=== PATIENT | male | born 1940 | race Caucasian/White ===

== ENCOUNTER 2021-02-18 09:43 | Outpatient (REF) | payer MEDICARE, SELFPAY ==
--- NOTE | ~2021-02-18 | XR_ITS ---
EXAMINATION: XR CHEST CLINICAL INFORMATION: Cough COMPARISON: Previous chest x-ray May 2020 TECHNIQUE: 2 views of the chest were obtained. FINDINGS: The cardiac and mediastinal contours are stable. There is superior retraction of the left pulmonary hilum. There may be a focal left upper lobe bronchiectasis and bronchial wall thickening. There is asymmetric left apical pleural thickening. These findings are unchanged. The right lung is clear. There is no pleural effusion or pneumothorax. There are degenerative changes of the spine. XR/XR chest 2V IMPRESSION: Volume loss to the left upper lobe. Left apical pleural thickening and central left upper lobe bronchiectasis and possible bronchial wall thickening. These changes appear similar to May 2020 exam.
== END 2021-02-18 09:44 | disposition home or self-care (01) ==
LOC: HO.XRAY 09:43
PROVIDERS: PCP Internal Medicine; Visit Provider Internal Medicine
DX: R05 Cough (principal)
CPT/HCPCS: 71046

== ENCOUNTER 2021-03-13 15:01 | Outpatient (RCR) | payer MEDICARE, SELFPAY | END 2021-08-03 09:35 | disposition home or self-care (01) | LOC: HO.PT 15:01 | PROVIDERS: PCP Internal Medicine; Visit Provider Internal Medicine | DX: M75.42 Impingement syndrome of left shoulder (principal) | CPT/HCPCS: 97110; 97161 ==

== ENCOUNTER 2023-11-17 11:43 | Outpatient (REF) | payer MEDICARE, SELFPAY ==
[2023-11-17 15:44] LABS: Influenza A PCR NEGATIVE (Negative); Influenza B PCR NEGATIVE (Negative); Resp Syncy Virus RNA Qual PCR NEGATIVE (Negative); SARS COV2 PCR INHOUSE NEGATIVE (Negative)
== END 2023-11-17 11:44 | disposition home or self-care (01) ==
LOC: HO.CHCLDS 11:43
PROVIDERS: Visit Provider Family Medicine
DX: J06.9 Acute upper respiratory infection, unspecified (principal)
CPT/HCPCS: 0241U

== ENCOUNTER 2024-01-16 14:32 | Outpatient (REF) | payer MEDICARE, SELFPAY ==
[2024-01-16 17:28] LABS: MANUAL DIFF FLAG NO
[2024-01-16 17:38] LABS: Basophils Percent Auto 0.3 % (0-2); Eosinophils Absolute Auto 0.3 X10*3/uL (0.0-0.4); Eosinophils Percent Auto 4.3 % (0-4); Imm Gran Abs Auto 0.02 X10*3/uL (0.00-0.03); Imm Gran Pct Auto 0.3 % (0.0-0.4); Lymphocytes Absolute Auto 2.1 X10*3/uL (1.2-4.9); Lymphocytes Percent Auto 33.1 % (20-40); Mean Corpuscular HGB Conc 31.6 g/dl (31.0-36.0); Mean Corpuscular Hemoglobin 31.6 pg (27.0-33.0); Mean Platelet Volume 11.5 fL (9.4-12.4); Monocytes Absolute Auto 0.6 X10*3/uL (0.1-1.2); Neutrophils Absolute Auto 3.3 x10*3/uL (2.0-8.3); Platelet Count 145 X10*3/uL (160-400); Red Blood Count 2.09 X10*6/uL (4.60-5.80); Red Cell Distribution Width 13.1 % (11.0-16.0); White Blood Count 6.3 X10*3/uL (4.8-10.8)
[2024-01-16 17:53] LABS: Hematocrit 20.9 % (42.0-52.0); Hemoglobin 6.6 g/dl (14.0-18.0)
[2024-01-16 18:09] LABS: TSH reflex Free T4 1.41 uIU/mL (0.32-4.0); Vitamin D 25-OH Total 14.3 ng/mL (>30)
[2024-01-16 18:18] LABS: Folate 6.1 ng/mL (> or = 4.0); Vitamin B12 445 pg/mL (200-900)
[2024-01-16 19:48] LABS: Alanine Aminotransferase 10 U/L (0-40); Albumin Level 2.5 g/dL (3.5-5.0); Alkaline Phosphatase 110 U/L (39-117); Anion Gap 11 (12-20); Aspartate Amino Transferase 16 U/L (5-37); Bilirubin Total 0.2 mg/dL (0.0-1.0); Blood Urea Nitrogen 57 mg/dL (9-16); Calcium 7.6 mg/dL (8.4-10.2); Carbon Dioxide 18 mmol/L (22-29); Chloride 115 mmol/L (96-108); Estimated Glomerular Filt Rate 10; Glucose Random 209 mg/dL (60-115); Potassium 4.4 mmol/L (3.3-5.1); Sodium 140 mmol/L (135-145); Total Protein 5.4 g/dL (6.5-8.0)
== END 2024-01-16 14:33 | disposition home or self-care (01) ==
LOC: HO.CHCLDS 14:32
PROVIDERS: Visit Provider Internal Medicine
DX: I13.0 Hypertensive heart and chronic kidney disease with heart failure and stage 1 through stage 4 chronic kidney disease, or unspecified chronic kidney disease (principal); E11.22 Type 2 diabetes mellitus with diabetic chronic kidney disease; N18.9 Chronic kidney disease, unspecified; R53.83 Other fatigue; E11.65 Type 2 diabetes mellitus with hyperglycemia; Z79.4 Long term (current) use of insulin
CPT/HCPCS: 36415; 80053; 82306; 82607; 82746; 84443; 85025

== ENCOUNTER → 2024-02-22 14:33 | Outpatient (REF) | payer MEDICARE, SELFPAY ==
--- NOTE | 2024-02-22 14:38 | CA_ITS ---
Transthoracic Echocardiogram Patient (Last, First, Middle): Eliza Correia, Gender: Male Date of : 1940 Age: 83 Procedure Date: 02/22/2024 Procedure Type: Transthoracic Echocardiogram Location: OP Height: 160.02 cm Weight: 64.41 kg BSA: 1.67 m2 Heart Rate: 81 bpm BP: 100 / 62 mmHg Information Systems Director: SB Referring MD: Venessa Hines MD Symptoms: R53.83 FATIGUE HYPERTENIVE HEART/RENAL DIS WW/ CHF I13.0 Study Quality: Adequate ECG Rhythm: Sinus Conclusions: - The left ventricular systolic function is normal. The calculated ejection fraction is 59% by biplane method. - There is moderate septal asymmetric hypertrophy. - No obvious valvular pathology seen on this study. Findings Left Ventricle Normal left ventricular cavity size. The left ventricular systolic function is normal. The calculated ejection fraction is 59% by biplane method. There is no evidence of regional wall motion abnormalities. Evidence suggests grade I (mild) diastolic dysfunction. There is moderate septal asymmetric hypertrophy. Right Ventricle Normal right ventricular cavity size. There is mildly decreased right ventricular systolic function. Atria Both atria are normal in size. Aortic Valve There is a normal trileaflet aortic valve. There is no aortic valve stenosis. There is trace (trivial) aortic valve regurgitation. Mitral Valve There is mild mitral annular calcification. There is trace mitral valve regurgitation. There is no mitral valve stenosis. Pulmonic Valve The pulmonic valve is likely normal. Tricuspid Valve There is trace tricuspid valve regurgitation. There is no evidence of pulmonary hypertension. Great Vessels The asc aorta is normal in size. Small plaque is seen in the sino tubular ridge. Venous The inferior vena cava was not well visualized. Pericardium/Pleural There is no evidence of pericardial effusion. Prior Study Comparison No prior study available for comparison. Recommendations, Care & Conclusions No obvious valvular pathology seen on this study. Measurements 2D Linear Measurements IVSd: 1.39 0.6-0.9/0.6-1.0 cm LVIDd: 3.97 3.9-5.3/4.2-5.9 cm LVIDd Index: 2.38 2.4-3.2/2.2-3.1 cm/m2 LVIDs: 2.82 2.0-3.6 cm LVPWd: 0.92 0.7-1.1 cm LA Diam: 3.80 2.7-3.8/3.0-4.0 cm LAIDs Index: 2.28 1.5-2.3 cm/m2 LV Mass: 192.88 67-162/88-224 g LV Mass Index: 115.49 43-95/49-115 g/m2 LVOT Diam: 1.90 3.0+(-)1.3 cm 2D Systolic Function EF 4C: 68.40 >55% EF 2C: 47.60 >55% EF BiP: 59.00 >55% Mitral Valve MV Pk E: 0.62 MV PK A: 1.27 MV Decel Time: 270.00 E/A: 0.50 E'Lateral: 5.87 E'Medial: 3.26 E/E' Med: 19.00 E/E' Lat: 10.50 PHT: 79.00 MVA PHT: 2.78 Decel Graves: 2.29 Aortic Valve AoV Pk Loc: 1.07 AoV Pk Grad: 5.00 GEORGE: 2.66 AI Pk Loc: 3.86 AI Graves: 2.17 LVOT LVOT Pk Loc: 1.01 LVOT Mn Loc: 0.76 LVOT VTI: 0.24 LVOT Pk Grad: 4.00 LVOT Mn Grad: 3.00 LVOT Diam: 1.90 LVOT Area: 2.84 Diastolic Function MV Pk E: 0.62 MV Pk A: 1.27 E/A: 0.50 E'Medial: 3.26 E/E' Med: 19.00 E' Laterial: 5.87 E/E' Lat: 10.50 Right Ventricle TAPSE (mm): 14.30 TVS' Loc: 9.46 Tricuspid Valve TR Pk Loc: 2.36 TR Pk Grad: 22.00 RA Press: 3.00 RVSP: 25.00 Great Vessels Aorta Sinus of Valsalva: 3.20 2.0-3.5 cm Ao Asc: 3.40 2.1-3.4 cm Pulmonary Valve PV Pk Loc: 1.15 Peak PV Grad: 5.00 Updated in Other Vendor System with Status of Final Tim Duff MD electronically signed on 02/24/2024 8:52:06 AM with status of Final
== END ==
LOC: HO.CARD 14:33
PROVIDERS: PCP Internal Medicine; Visit Provider Internal Medicine
DX: I13.0 Hypertensive heart and chronic kidney disease with heart failure and stage 1 through stage 4 chronic kidney disease, or unspecified chronic kidney disease (principal); N18.9 Chronic kidney disease, unspecified; I50.9 Heart failure, unspecified; R53.83 Other fatigue
CPT/HCPCS: 93306

== ENCOUNTER → 2024-02-22 14:38 | Outpatient (BNV) | payer MEDICARE, SELFPAY | PROVIDERS: PCP Internal Medicine; Visit Provider Internal Medicine | DX: I42.2 Other hypertrophic cardiomyopathy (principal); I34.81 Nonrheumatic mitral (valve) annulus calcification | CPT/HCPCS: 93306 ==

== ENCOUNTER 2024-03-07 09:07 | Outpatient (REF) | payer MEDICARE, SELFPAY ==
[2024-03-07 14:46] LABS: Hematocrit 31.7 % (42.0-52.0); Hemoglobin 10.2 g/dl (14.0-18.0); Mean Corpuscular HGB Conc 32.2 g/dl (31.0-36.0); Mean Corpuscular Hemoglobin 31.3 pg (27.0-33.0); Mean Corpuscular Volume 97.2 fL (80.0-98.0); Mean Platelet Volume 11.6 fL (9.4-12.4); Platelet Count 157 X10*3/uL (160-400); Red Blood Count 3.26 X10*6/uL (4.60-5.80); Red Cell Distribution Width 14.4 % (11.0-16.0); White Blood Count 8.2 X10*3/uL (4.8-10.8)
[2024-03-07 15:02] LABS: Anion Gap 16 (12-20); Blood Urea Nitrogen 124 mg/dL (9-16); Calcium 8.7 mg/dL (8.4-10.2); Carbon Dioxide 18 mmol/L (22-29); Chloride 107 mmol/L (96-108); Glucose Random 337 mg/dL (60-115); Potassium 4.7 mmol/L (3.3-5.1); Sodium 136 mmol/L (135-145)
[2024-03-07 15:05] LABS: Estimated Glomerular Filt Rate 6
[2024-03-07 15:18] LABS: Ferritin 149 ng/mL (20-250)
== END 2024-03-07 09:08 | disposition home or self-care (01) ==
LOC: HO.CHCLDS 09:07
PROVIDERS: Visit Provider Internal Medicine
DX: R19.7 Diarrhea, unspecified (principal)
CPT/HCPCS: 36415; 80048; 82728; 85027

== ENCOUNTER 2024-03-08 14:51 | Outpatient (REF) | payer MEDICARE, SELFPAY ==
[2024-03-08 19:14] LABS: CDiff Gene PCR NEGATIVE (Negative)
[2024-03-08 21:06] LABS: Leukocytes Stool Qualitative NEGATIVE (NEGATIVE)
== END 2024-03-08 14:52 | disposition home or self-care (01) ==
LOC: HO.CHCLNP 14:51
PROVIDERS: Visit Provider Internal Medicine
DX: R19.7 Diarrhea, unspecified (principal)
CPT/HCPCS: 87177; 87209; 87493; 89055

== ENCOUNTER 2024-03-09 09:25 | Outpatient (REF) | payer MEDICARE, SELFPAY ==
--- NOTE | ~2024-03-09 | XR_ITS ---
EXAMINATION: XR ABDOMEN KUB CLINICAL INDICATION: Pain COMPARISON: 02/18/2021 TECHNIQUE: AP view of the abdomen. FINDINGS: The bowel gas pattern is normal with no evidence of ileus or obstruction. No unusual soft tissue calcifications are noted. The bones are unremarkable. Multiple punctate calcifications projecting over the left upper quadrant likely within the spleen, unchanged when compared to prior chest x-ray. These likely reflect splenic granulomas. XR/XR KUB IMPRESSION: Nonobstructive bowel gas pattern.
== END 2024-03-09 09:26 | disposition home or self-care (01) ==
LOC: HO.XRAY 09:25
PROVIDERS: PCP Internal Medicine; Visit Provider Internal Medicine
DX: R19.7 Diarrhea, unspecified (principal)
CPT/HCPCS: 74018